=== PATIENT | male | born 1975 | race Caucasian/White ===

== ENCOUNTER 2020-08-14 10:56 | Outpatient (REF) | payer BC, SELFPAY ==
[2020-08-14 11:07] LABS: MANUAL DIFF FLAG NO
[2020-08-14 11:41] LABS: Basophils Absolute Auto 0.1 X10*3/uL (0.0-0.2); Basophils Percent Auto 1.1 % (0-2); Eosinophils Absolute Auto 0.1 X10*3/uL (0.0-0.4); Eosinophils Percent Auto 1.9 % (0-4); Hematocrit 45.1 % (42-52); Hemoglobin 14.9 g/dl (14.0-18.0); Imm Gran Abs Auto 0.03 X10*3/uL (0.00-0.03); Imm Gran Pct Auto 0.5 % (0.0-0.4); Lymphocytes Absolute Auto 2.6 X10*3/uL (1.2-4.9); Lymphocytes Percent Auto 41.4 % (20-40); Mean Corpuscular Hemoglobin 29.6 pg (27.0-33.0); Mean Corpuscular Volume 89.5 fL (80-98); Mean Platelet Volume 10.6 fL (9.4-12.4); Monocytes Absolute Auto 0.5 X10*3/uL (0.1-1.2); Monocytes Percent Auto 8.1 % (2-11); Platelet Count 335 X10*3/uL (160-400); Red Blood Count 5.04 X10*6/uL (4.60-5.80); Red Cell Distribution Width 12.8 % (11.0-16.0); White Blood Count 6.3 X10*3/uL (4.8-10.8)
[2020-08-14 11:52] LABS: Glucose Urine UA 100 MG/DL (NEG); Leukocyte Esterase Urine NEG (NEG); Nitrite Urine NEG (NEG); Specific Gravity - Urine >= 1.030 (1.005-1.025); Urine Blood NEG (NEG); Urine Ketones NEG (NEG); Urine Protein NEG (NEG-TRACE)
[2020-08-14 11:55] LABS: Estimated Average Glucose 117 mg/dL; Hemoglobin A1C 148.9066 umol/L; Hemoglobin A1c % 5.7 %
[2020-08-14 11:56] LABS: Appearance Urine CLEAR; Color Urine YELLOW
[2020-08-14 12:07] LABS: Creatinine Urine 223.69 mg/dL; Microalbum/Creatinine Ratio Ur 3.5 ug/mg cr
[2020-08-14 12:12] LABS: Alanine Aminotransferase 27 U/L (0-40); Albumin Level 4.2 g/dL (3.5-5.0); Alkaline Phosphatase 66 U/L (39-117); Anion Gap 14 (12-20); Aspartate Amino Transferase 21 U/L (5-37); Bilirubin Total 0.9 mg/dL (0.0-1.0); Blood Urea Nitrogen 18 mg/dL (9-16); Calcium 9.1 mg/dL (8.4-10.2); Carbon Dioxide 27 mmol/L (22-29); Chloride 104 mmol/L (96-108); Cholesterol 205 mg/dL; Estimated Glomerular Filt Rate > 60; Glucose Fasting 104 mg/dL (60-99); HDL Cholesterol 38 mg/dL; LDL Cholesterol Calculated 116 mg/dl; Potassium 4.2 mmol/L (3.3-5.1); Sodium 141 mmol/L (135-145); Total Protein 7.3 g/dL (6.5-8.0); Triglycerides 259 mg/dL
== END 2020-08-14 10:57 | disposition home or self-care (01) ==
LOC: HO.LNP 10:56
PROVIDERS: Visit Provider Internal Medicine
DX: Z00.00 Encounter for general adult medical examination without abnormal findings (principal); Z12.5 Encounter for screening for malignant neoplasm of prostate; R73.03 Prediabetes; E78.00 Pure hypercholesterolemia, unspecified
CPT/HCPCS: 80053; 80061; 81003; 82043; 83036; 84153; 85025

== ENCOUNTER 2021-08-27 10:20 | Outpatient (REF) | payer BC, SELFPAY ==
[2021-08-27 10:25] LABS: MANUAL DIFF FLAG NO
[2021-08-27 11:05] LABS: Basophils Absolute Auto 0.1 X10*3/uL (0.0-0.2); Basophils Percent Auto 0.6 % (0-2); Eosinophils Absolute Auto 0.2 X10*3/uL (0.0-0.4); Eosinophils Percent Auto 1.8 % (0-4); Hematocrit 45.3 % (42.0-52.0); Hemoglobin 15.2 g/dl (14.0-18.0); Imm Gran Abs Auto 0.04 X10*3/uL (0.00-0.03); Imm Gran Pct Auto 0.5 % (0.0-0.4); Lymphocytes Percent Auto 34.8 % (20-40); Mean Corpuscular HGB Conc 33.6 g/dl (31.0-36.0); Mean Corpuscular Hemoglobin 29.4 pg (27.0-33.0); Mean Corpuscular Volume 87.6 fL (80.0-98.0); Mean Platelet Volume 10.4 fL (9.4-12.4); Monocytes Absolute Auto 0.8 X10*3/uL (0.1-1.2); Monocytes Percent Auto 9.4 % (2-11); Neutrophils Absolute Auto 4.5 x10*3/uL (2.0-8.3); Neutrophils Percent Auto 52.9 % (45-73); Platelet Count 297 X10*3/uL (160-400); Red Blood Count 5.17 X10*6/uL (4.60-5.80); Red Cell Distribution Width 13.1 % (11.0-16.0); White Blood Count 8.5 X10*3/uL (4.8-10.8)
[2021-08-27 11:08] LABS: Appearance Urine CLEAR; Color Urine STRAW; Glucose Urine UA 100 MG/DL (NEG); Leukocyte Esterase Urine NEG (NEG); Nitrite Urine NEG (NEG); PH 5.5 (5.0-8.0); Specific Gravity - Urine 1.025 (1.005-1.025); Urine Blood NEG (NEG); Urine Ketones NEG (NEG); Urine Protein NEG (NEG-TRACE)
[2021-08-27 11:18] LABS: Estimated Average Glucose 120 mg/dL; Hemoglobin A1c % 5.8 %
[2021-08-27 11:20] LABS: Alanine Aminotransferase 40 U/L (0-40); Albumin Level 4.3 g/dL (3.5-5.0); Alkaline Phosphatase 61 U/L (39-117); Anion Gap 11 (12-20); Aspartate Amino Transferase 26 U/L (5-37); Blood Urea Nitrogen 22 mg/dL (9-16); Calcium 9.8 mg/dL (8.4-10.2); Carbon Dioxide 28 mmol/L (22-29); Chloride 102 mmol/L (96-108); Cholesterol 244 mg/dL; Estimated Glomerular Filt Rate > 60; Glucose Fasting 121 mg/dL (60-99); HDL Cholesterol 38 mg/dL; Potassium 4.1 mmol/L (3.3-5.1); Sodium 137 mmol/L (135-145); Total Protein 7.6 g/dL (6.5-8.0); Triglycerides 491 mg/dL
[2021-08-27 11:42] LABS: PSA,Total (Free>4and<10) 0.51 ng/mL (0.00-4.00)
[2021-08-27 11:54] LABS: Creatinine Urine 104.68 mg/dL; Microalbumin Urine < 5.0 mg/L
== END 2021-08-27 10:21 | disposition home or self-care (01) ==
LOC: HO.LNP 10:20
PROVIDERS: Visit Provider Internal Medicine
DX: Z00.00 Encounter for general adult medical examination without abnormal findings (principal); Z12.5 Encounter for screening for malignant neoplasm of prostate; E78.00 Pure hypercholesterolemia, unspecified; R73.03 Prediabetes
CPT/HCPCS: 80053; 80061; 81003; 82043; 83036; 84153; 85025

== ENCOUNTER 2021-09-02 11:13 | Outpatient (REF) | payer BC, SELFPAY ==
[2021-09-02 11:33] LABS: C Reactive Protein 0.37 mg/dL (< or = 0.50)
[2021-09-02 12:09] LABS: Erythrocyte Sedimentation Rate 4 MM/HR (0-15)
[2021-09-04 08:32] LABS: Lyme Abs Screen <0.90 index
[2021-09-09 12:46] LABS: Anti Nuclear Antibody Screen POSITIVE (NEGATIVE); Anti Nuclear Antibody Titer 1:40 titer
== END 2021-09-02 11:14 | disposition home or self-care (01) ==
LOC: HO.LNP 11:13
PROVIDERS: PCP Internal Medicine; Visit Provider Internal Medicine
DX: M19.90 Unspecified osteoarthritis, unspecified site (principal); R79.9 Abnormal finding of blood chemistry, unspecified
CPT/HCPCS: 85652; 86038; 86039; 86140; 86617; 86618

== ENCOUNTER → 2021-10-22 08:49 | Outpatient (BNVA) | payer BC, SELFPAY | PROVIDERS: PCP Internal Medicine; Visit Provider Nurse Practitioner Family | DX: R76.8 Other specified abnormal immunological findings in serum (principal) ==

== ENCOUNTER 2021-10-25 08:02 | Outpatient (REF) | payer BC, SELFPAY ==
--- NOTE | ~2021-10-25 | XR_ITS ---
EXAMINATION: Bilateral hands and knees. CLINICAL INFORMATION: Pain and stiffness. COMPARISON: None. TECHNIQUE: 3 views of each hand and 3 views of each knee. FINDINGS: Right hand: There is no evidence of acute fracture or dislocation of the right hand. Right hand joint spaces are maintained. No significant soft tissue swelling is appreciated. No erosive changes are evident. Left hand: There is no evidence of acute fracture or dislocation of the left hand. Left hand joint spaces are maintained. No erosive changes are evident. There is a bone island seen base of the 4th distal phalanx. Left knee: There is no evidence of acute fracture or dislocation of the left knee. Left knee joint spaces are maintained. No effusion is evident. Right knee: There is no evidence of acute fracture or dislocation of the right knee. Right knee joint spaces are maintained. No right knee effusion. XR/XR knee RT 3V IMPRESSION: No significant bony abnormality identified involving the bilateral hands and bilateral knees.
--- NOTE | ~2021-10-25 | XR_ITS ---
EXAMINATION: Bilateral hands and knees. CLINICAL INFORMATION: Pain and stiffness. COMPARISON: None. TECHNIQUE: 3 views of each hand and 3 views of each knee. FINDINGS: Right hand: There is no evidence of acute fracture or dislocation of the right hand. Right hand joint spaces are maintained. No significant soft tissue swelling is appreciated. No erosive changes are evident. Left hand: There is no evidence of acute fracture or dislocation of the left hand. Left hand joint spaces are maintained. No erosive changes are evident. There is a bone island seen base of the 4th distal phalanx. Left knee: There is no evidence of acute fracture or dislocation of the left knee. Left knee joint spaces are maintained. No effusion is evident. Right knee: There is no evidence of acute fracture or dislocation of the right knee. Right knee joint spaces are maintained. No right knee effusion. XR/XR knee LT 3V IMPRESSION: No significant bony abnormality identified involving the bilateral hands and bilateral knees.
--- NOTE | ~2021-10-25 | XR_ITS ---
EXAMINATION: Bilateral hands and knees. CLINICAL INFORMATION: Pain and stiffness. COMPARISON: None. TECHNIQUE: 3 views of each hand and 3 views of each knee. FINDINGS: Right hand: There is no evidence of acute fracture or dislocation of the right hand. Right hand joint spaces are maintained. No significant soft tissue swelling is appreciated. No erosive changes are evident. Left hand: There is no evidence of acute fracture or dislocation of the left hand. Left hand joint spaces are maintained. No erosive changes are evident. There is a bone island seen base of the 4th distal phalanx. Left knee: There is no evidence of acute fracture or dislocation of the left knee. Left knee joint spaces are maintained. No effusion is evident. Right knee: There is no evidence of acute fracture or dislocation of the right knee. Right knee joint spaces are maintained. No right knee effusion. XR/XR hand RT min 3V IMPRESSION: No significant bony abnormality identified involving the bilateral hands and bilateral knees.
--- NOTE | ~2021-10-25 | XR_ITS ---
EXAMINATION: Bilateral hands and knees. CLINICAL INFORMATION: Pain and stiffness. COMPARISON: None. TECHNIQUE: 3 views of each hand and 3 views of each knee. FINDINGS: Right hand: There is no evidence of acute fracture or dislocation of the right hand. Right hand joint spaces are maintained. No significant soft tissue swelling is appreciated. No erosive changes are evident. Left hand: There is no evidence of acute fracture or dislocation of the left hand. Left hand joint spaces are maintained. No erosive changes are evident. There is a bone island seen base of the 4th distal phalanx. Left knee: There is no evidence of acute fracture or dislocation of the left knee. Left knee joint spaces are maintained. No effusion is evident. Right knee: There is no evidence of acute fracture or dislocation of the right knee. Right knee joint spaces are maintained. No right knee effusion. XR/XR hand LT min 3V IMPRESSION: No significant bony abnormality identified involving the bilateral hands and bilateral knees.
[2021-10-25 09:18] LABS: Rheumatoid Factor < 15.0 IU/mL (<15.0)
[2021-10-25 09:37] LABS: Creatinine Urine 139.22 mg/dL; Microalbumin Urine < 5.0 mg/L
[2021-10-25 09:42] LABS: Thyroid Stimulating Hormone 1.29 uIU/mL (0.32-4.0)
[2021-10-29 16:40] LABS: Cyclic Citrullinated Peptide <16 UNITS
[2021-10-31 16:07] LABS: Anti DNA DS Antibody <1 IU/mL; SM/Ribonucleoprotein Ab <1.0 NEG AI (<1.0 NEG); Smith Protein <1.0 NEG AI (<1.0 NEG)
== END 2021-10-25 08:03 | disposition home or self-care (01) ==
LOC: HO.LAB 08:02
PROVIDERS: PCP Internal Medicine; Visit Provider Nurse Practitioner Family
DX: M25.561 Pain in right knee (principal); M25.562 Pain in left knee; M25.642 Stiffness of left hand, not elsewhere classified; M25.641 Stiffness of right hand, not elsewhere classified; R76.8 Other specified abnormal immunological findings in serum; M25.50 Pain in unspecified joint
CPT/HCPCS: 36415; 73130; 73562; 82043; 84443; 86200; 86225; 86235; 86431

== ENCOUNTER 2021-11-01 11:02 | Outpatient (REF) | payer BC, SELFPAY ==
[2021-11-01 11:23] LABS: Blood Urea Nitrogen 15 mg/dL (9-16)
== END 2021-11-01 11:03 | disposition home or self-care (01) ==
LOC: HO.LNP 11:02
PROVIDERS: Visit Provider Internal Medicine
DX: R79.9 Abnormal finding of blood chemistry, unspecified (principal)
CPT/HCPCS: 84520

== ENCOUNTER 2022-08-08 07:23 | Day surgery (SDC) | payer BC, SELFPAY ==
--- NOTE | 2022-08-07 12:51 | P.CONAN_ITS ---
Documented by User: Raissa Traore NP 08/07/22 12:51 HPI - Anesthesia Eval Consult details Narrative: 47yo M for Colonoscopy PMFSH Active Problems Active Problems: All Active Problems (Updated 10/22/21 @ 10:10 by Shaylee Crowell NP) Positive antinuclear antibody (Acute) Surgical History Surgical History [place] teeth extracted Social History Social History Household Members: Spouse Housing: House Are you a primary health care analyst to a significant other at home: No Do you presently have visiting nurse or other home services: No Alcohol intake: never Patient Tobacco Use Status: Never used Tobacco e-Cigarette/Vaping Use: Never Used Advance Directives: No Advance Directives Information Provided: Yes service: Yes Current occupational status: employed Current occupation: [employer] Allergies Allergy/AdvReac Type Severity Reaction Status Date / Time shellfish derived Allergy Unknown STOMACH Verified 08/08/22 07:43 [SHELLFISH DERIVED] PAIN, VOMITING, DIARRHEA Home Medications Medication Instructions Recorded Confirmed Last Taken Type calcium carbonate 300 mg (750 mg) 300 mg PO BID PRN Heartburn 10/22/21 08/08/22 Unknown History chewable tablet (Tums) Exam Exam Date and Time: August 07, 2022 1251 Assessment and Plan Assessment Anesthesia Assessment: Chart Reviewed Documented by User: Zain Benítez MD 08/08/22 07:49 PMFSH Family History Family history of problems with anesthesia: No Surgical History Surgical History [place] teeth extracted History of Problems with Anesthesia: No Social History Social History Household Members: Spouse Housing: House Are you a primary health care analyst to a significant other at home: No Do you presently have visiting nurse or other home services: No Alcohol intake: never Patient Tobacco Use Status: Never used Tobacco e-Cigarette/Vaping Use: Never Used Advance Directives: No Advance Directives Information Provided: Yes service: Yes Current occupational status: employed Current occupation: [employer] Allergies Allergy/AdvReac Type Severity Reaction Status Date / Time shellfish derived Allergy Unknown STOMACH Verified 08/08/22 07:43 [SHELLFISH DERIVED] PAIN, VOMITING, DIARRHEA Home Medications Medication Instructions Recorded Confirmed Last Taken Type calcium carbonate 300 mg (750 mg) 300 mg PO BID PRN Heartburn 10/22/21 08/08/22 Unknown History chewable tablet (Tums) Exam Airway Mallampati Class: III TM Dist: >3cm Neck ROM: Full Assessment and Plan Assessment Anesthesia Assessment: Anesthesia Plan Discussed Final Anesthetic Review Family History of Problems with Anesthesia: No History of Problems with Anesthesia: No NPO: Yes ASA Class: II Final Preanesthetic Review: No Changes in Pt Med Stat, Meds/Allgs Chart Reviewed, Consent Obtained/Reviewed and Anes Risks/Benef Reviewed Patient Risk: Low Procedure Risk: Low Anesthetic Plan Anesthetic Plan: MAC: Disposition: Standard PACU
[2022-08-08 08:00] VITALS: BMI 28.7
[2022-08-08 08:01] VITALS: BP 139/92; PULSE 74; RESP 15; TEMP 36.3; O2SAT 97
[2022-08-08] MEDS: Lactated Ringers 1,000 ML 100 ML IVCONT (08:12)
[2022-08-08 09:33] VITALS: BP 110/73; PULSE 80; RESP 15; TEMP 36.2; O2SAT 96
--- NOTE | 2022-08-08 09:35 | PM.OP ---
Brief Operative Note Date of Service: 08/08/22 Pre-op diagnosis: Screening Post-op diagnosis: other (Polyps) Procedure: Colonoscopy to the cecum and TI with cold snare polypectomy, and bx/removal of polyps Surgeon: José Luis Garcia Anesthesia: MAC Was an Independent Insurance Adjuster used for this Procedure?: No Estimated blood loss (mL): 2.0 Pathology: other (A. Transverse colon polyps) Condition: stable Disposition: PACU
[2022-08-08 09:48] VITALS: BP 116/83; PULSE 73; RESP 16; TEMP 36.4; O2SAT 97
--- NOTE | 2022-08-08 12:42 | OP_ITS ---
SURGEON: José Luis Garcia MD INDICATIONS: The patient presents for evaluation of colorectal cancer screening. Full consent has been obtained from him for this, including risks of bleeding and perforation. PREOPERATIVE DIAGNOSIS: POSTOPERATIVE DIAGNOSIS: PROCEDURE PERFORMED: Colonoscopy to the cecum and terminal ileum with cold snare polypectomy and biopsy with removal of polyp. ESTIMATED BLOOD LOSS: COMPLICATIONS: ANESTHESIA: Monitored anesthesia care ASSISTANTS: SPECIMENS: PREOPERATIVE DIAGNOSES: Colorectal cancer screening. POSTOPERATIVE DIAGNOSES: Colorectal cancer screening, small colon polyps, internal hemorrhoids. DESCRIPTION OF PROCEDURE: The patient was placed in the left lateral decubitus position. The digital rectal exam revealed no abnormalities. The Olympus video pediatric colonoscope was entered into the rectum and advanced easily to the cecum. Once in the cecum, I did identify normal-appearing cecal pouch with appendiceal orifice and a normal-appearing ileocecal valve. The terminal ileum was cannulated and appeared normal. The scope was withdrawn back in the colon. The entire cecum and ileocecal valve appeared normal. The scope was slowly withdrawn assessing all mucosal surfaces carefully. Perforation was excellent. In the proximal transverse colon, there were 2 flat polyps between 3 and 5 mm in diameter which were immediately adjacent to each other. They were removed by cold snare polypectomy together and recovered by suction. The polypectomy site appeared clean, without any sign of residual polyp nor any significant bleeding. Also, in the more distal transverse colon were 2 polyps each about 3 mm in diameter which were biopsied and completely removed with the cold biopsy forceps and placed in the same container as the other polyps. I did not visualize any other polyps, colitis, nor angiodysplasia. In the rectum, the scope was retroflexed, visualizing internal hemorrhoids, but no other pathology. The rectal mucosa appeared normal. The scope was straightened out and withdrawn from the patient. He tolerated the procedure well and was returned to the recovery area in stable condition. IMPRESSION: 1. Colon polyps. 2. Internal hemorrhoids. PLAN: The results of the pathology will be checked. If these are tubular adenomas, I would recommend a followup colonoscopy in 5 years. If they are all hyperplastic, I would recommend followup colonoscopy in 10 years. He was advised not to use any aspirin or NSAIDs for 1 week. MD BEAN Hallman/MARLENE / [phone] [facility] HOSPITALHerbert
== END 2022-08-08 10:24 | disposition home or self-care (01) ==
PROVIDERS: PCP Internal Medicine; Visit Provider Internal Medicine
PROC: 0DJD8ZZ Inspection of Lower Intestinal Tract, Via Natural or Artificial Opening Endoscopic (ICD-10-PCS; CPT 45378; principal; 2022-08-08 08:30)
DX: Z12.11 Encounter for screening for malignant neoplasm of colon (principal); D12.3 Benign neoplasm of transverse colon; K64.8 Other hemorrhoids
CPT/HCPCS: 45385; 45380; 88305

== ENCOUNTER 2022-08-29 11:41 | Outpatient (REF) | payer BC, SELFPAY ==
[2022-08-29 11:44] LABS: MANUAL DIFF FLAG NO
[2022-08-29 12:34] LABS: White Blood Count 7.3 X10*3/uL (4.8-10.8)
[2022-08-29 12:35] LABS: Basophils Absolute Auto 0.1 X10*3/uL (0.0-0.2); Basophils Percent Auto 0.8 % (0-2); Eosinophils Absolute Auto 0.1 X10*3/uL (0.0-0.4); Hematocrit 46.8 % (42.0-52.0); Hemoglobin 15.4 g/dl (14.0-18.0); Imm Gran Abs Auto 0.03 X10*3/uL (0.00-0.03); Imm Gran Pct Auto 0.4 % (0.0-0.4); Lymphocytes Absolute Auto 2.4 X10*3/uL (1.2-4.9); Mean Corpuscular HGB Conc 32.9 g/dl (31.0-36.0); Mean Corpuscular Volume 88.1 fL (80.0-98.0); Mean Platelet Volume 10.7 fL (9.4-12.4); Monocytes Absolute Auto 0.7 X10*3/uL (0.1-1.2); Monocytes Percent Auto 9.4 % (2-11); Neutrophils Absolute Auto 4.1 x10*3/uL (2.0-8.3); Neutrophils Percent Auto 56.4 % (45-73); Platelet Count 318 X10*3/uL (160-400); Red Blood Count 5.31 X10*6/uL (4.60-5.80); Red Cell Distribution Width 13.2 % (11.0-16.0)
[2022-08-29 12:43] LABS: Appearance Urine Clear; Color Urine Yellow; Glucose Urine UA 100 mg/dL (Negative); Leukocyte Esterase Urine Negative (Negative); Nitrite Urine Negative (Negative); Urine Blood Negative (Negative); Urine Ketones Negative (Negative); Urine Protein Negative (Neg-Trace)
[2022-08-29 12:49] LABS: Bacteria Urine None Seen (None Seen); Hyaline Casts Urine 0-2 /LPF (0-2); RBC Urine 0-2 /HPF (0-2); Squamous Epithelial Cell Urine 0-2 /HPF (0-2); WBC Urine 0-5 /HPF (0-5)
[2022-08-29 12:58] LABS: Creatinine Urine 168.86 mg/dL; Microalbum/Creatinine Ratio Ur 5.3 ug/mg cr
[2022-08-29 13:04] LABS: Estimated Average Glucose 128 mg/dL; Hemoglobin A1c % 6.1 %
[2022-08-29 13:15] LABS: Alanine Aminotransferase 38 U/L (0-40); Albumin Level 4.3 g/dL (3.5-5.0); Alkaline Phosphatase 60 U/L (39-117); Anion Gap 14 (12-20); Aspartate Amino Transferase 30 U/L (5-37); Bilirubin Total 1.5 mg/dL (0.0-1.0); Blood Urea Nitrogen 16 mg/dL (9-16); Calcium 9.4 mg/dL (8.4-10.2); Carbon Dioxide 25 mmol/L (22-29); Chloride 102 mmol/L (96-108); Cholesterol 216 mg/dL; Estimated Glomerular Filt Rate > 60; Glucose Fasting 125 mg/dL (60-99); HDL Cholesterol 39 mg/dL; LDL Cholesterol Calculated 117 mg/dl; PSA,Total (Free>4and<10) 0.62 ng/mL (0.00-4.00); Potassium 4.2 mmol/L (3.3-5.1); Sodium 137 mmol/L (135-145); Total Protein 7.3 g/dL (6.5-8.0); Triglycerides 302 mg/dL
== END 2022-08-29 11:42 | disposition home or self-care (01) ==
LOC: HO.LNP 11:41
PROVIDERS: Visit Provider Internal Medicine
DX: Z00.00 Encounter for general adult medical examination without abnormal findings (principal); E78.00 Pure hypercholesterolemia, unspecified; R73.03 Prediabetes; Z12.5 Encounter for screening for malignant neoplasm of prostate
CPT/HCPCS: 80053; 80061; 81001; 82043; 83036; 84153; 85025

== ENCOUNTER 2023-09-04 11:30 | Outpatient (REF) | payer BC, SELFPAY ==
[2023-09-04 11:35] LABS: MANUAL DIFF FLAG NO
[2023-09-04 12:01] LABS: Basophils Absolute Auto 0.1 X10*3/uL (0.0-0.2); Basophils Percent Auto 1.2 % (0-2); Eosinophils Absolute Auto 0.1 X10*3/uL (0.0-0.4); Eosinophils Percent Auto 1.4 % (0-4); Hematocrit 46.8 % (42.0-52.0); Hemoglobin 15.5 g/dl (14.0-18.0); Imm Gran Abs Auto 0.04 X10*3/uL (0.00-0.03); Imm Gran Pct Auto 0.5 % (0.0-0.4); Lymphocytes Absolute Auto 2.5 X10*3/uL (1.2-4.9); Lymphocytes Percent Auto 32.4 % (20-40); Mean Corpuscular HGB Conc 33.1 g/dl (31.0-36.0); Mean Corpuscular Volume 87.6 fL (80.0-98.0); Monocytes Absolute Auto 0.8 X10*3/uL (0.1-1.2); Monocytes Percent Auto 9.8 % (2-11); Neutrophils Absolute Auto 4.2 x10*3/uL (2.0-8.3); Neutrophils Percent Auto 54.7 % (45-73); Platelet Count 329 X10*3/uL (160-400); Red Blood Count 5.34 X10*6/uL (4.60-5.80); Red Cell Distribution Width 13.2 % (11.0-16.0); White Blood Count 7.7 X10*3/uL (4.8-10.8)
[2023-09-04 12:07] LABS: Appearance Urine Clear; Color Urine Yellow; Glucose Urine UA 500 mg/dL (Negative); Leukocyte Esterase Urine Negative (Negative); Nitrite Urine Negative (Negative); Specific Gravity - Urine 1.025 (1.005-1.025); Urine Blood Negative (Negative); Urine Ketones Negative (Negative); Urine Protein Negative (Neg-Trace)
[2023-09-04 12:14] LABS: Bacteria Urine None Seen (None Seen); Hyaline Casts Urine 0-2 /LPF (0-2); RBC Urine 0-2 /HPF (0-2); Squamous Epithelial Cell Urine 0-2 /HPF (0-2); WBC Urine 0-5 /HPF (0-5)
[2023-09-04 12:48] LABS: Estimated Average Glucose 134 mg/dL; Hemoglobin A1c % 6.3 % (<6.0)
[2023-09-04 12:52] LABS: Alanine Aminotransferase 50 U/L (0-40); Albumin Level 4.1 g/dL (3.5-5.0); Alkaline Phosphatase 61 U/L (39-117); Anion Gap 16 (12-20); Aspartate Amino Transferase 27 U/L (5-37); Bilirubin Total 0.9 mg/dL (0.0-1.0); Blood Urea Nitrogen 18 mg/dL (9-16); Calcium 9.8 mg/dL (8.4-10.2); Carbon Dioxide 25 mmol/L (22-29); Chloride 104 mmol/L (96-108); Cholesterol 222 mg/dL (<200); Estimated Glomerular Filt Rate > 60; Glucose Fasting 132 mg/dL (60-99); HDL Cholesterol 40 mg/dL (>40); Potassium 3.9 mmol/L (3.3-5.1); Sodium 141 mmol/L (135-145); Total Protein 7.8 g/dL (6.5-8.0); Triglycerides 457 mg/dL (<150)
[2023-09-04 13:16] LABS: PSA,Total (Free>4and<10) 0.73 ng/mL (0.00-4.00)
[2023-09-04 13:43] LABS: Creatinine Urine 133.92 mg/dL; Microalbum/Creatinine Ratio Ur 4.4 ug/mg cr (<30)
== END 2023-09-04 11:31 | disposition home or self-care (01) ==
LOC: HO.LNP 11:30
PROVIDERS: Visit Provider Internal Medicine
DX: Z00.00 Encounter for general adult medical examination without abnormal findings (principal); Z12.5 Encounter for screening for malignant neoplasm of prostate; E78.00 Pure hypercholesterolemia, unspecified; R73.03 Prediabetes
CPT/HCPCS: 80053; 80061; 81001; 82043; 82570; 83036; 84153; 85025

== ENCOUNTER 2024-05-06 11:14 | Outpatient (REF) | payer BC, SELFPAY ==
[2024-05-06 12:01] LABS: Estimated Average Glucose 131 mg/dL; Hemoglobin A1C 178.8949 umol/L; Hemoglobin A1c % 6.2 % (<6.0); Total Hemoglobin (HGBA1C) 4001.3587 umol/L
[2024-05-06 12:09] LABS: Alanine Aminotransferase 50 U/L (0-40); Albumin Level 4.4 g/dL (3.5-5.0); Alkaline Phosphatase 65 U/L (39-117); Aspartate Amino Transferase 42 U/L (5-37); Bilirubin Direct 0.3 mg/dL (0.0-0.5); Bilirubin Total 0.9 mg/dL (0.0-1.0); Cholesterol 211 mg/dL (<200); Glucose Fasting 123 mg/dL (60-99); HDL Cholesterol 41 mg/dL (>40); LDL Cholesterol Calculated 93 mg/dL (<100); Total Protein 8.1 g/dL (6.5-8.0); Triglycerides 386 mg/dL (<150)
[2024-05-06 12:12] LABS: Reflex LDLD? No
== END 2024-05-06 11:15 | disposition home or self-care (01) ==
LOC: HO.LNP 11:14
PROVIDERS: Visit Provider Internal Medicine
DX: E78.00 Pure hypercholesterolemia, unspecified (principal); E11.9 Type 2 diabetes mellitus without complications
CPT/HCPCS: 80061; 80076; 82947; 83036

== ENCOUNTER 2024-11-04 11:24 | Outpatient (REF) | payer BC, SELFPAY ==
[2024-11-04 11:30] LABS: MANUAL DIFF FLAG NO
--- OUTSIDE RECORDS SUMMARY | 2024-11-04 12:10 | XMS_ITS ---
Author Organization Raghavendra Mejia MD Address [address] [place], [place] [id number] Care Team Providers [employer] Architect Name Role Phone Raghavendra Mejia Primary Care Provider [phone] Results Component Value Reference Range Notes Liver Panel Reviewed date:05/06/2024 12:17:23 PM Interpretation: Performing Lab:[facility], [address] [place] [phone] Notes/Report: Bilirubin Total 0.9 0.0-1.0 mg/dL Bilirubin Direct 0.3 0.0-0.5 mg/dL Aspartate Amino Transferase 42 5-37 U/L Alanine Aminotransferase 50 0-40 U/L Total Protein 8.1 6.5-8.0 g/dL Albumin Level 4.4 3.5-5.0 g/dL Alkaline Phosphatase 65 39-117 U/L Glucose Fasting Reviewed date:05/06/2024 12:34:04 PM Interpretation: Performing Lab:[facility], [address] [place] [phone] Notes/Report: Glucose Fasting 123 60-99 mg/dL A fasting glucose from 100-125 mg/dl is considered impaired (pre-diabetes). Lipid Panel with Reflex Reviewed date:05/06/2024 12:30:05 PM Interpretation: Performing Lab:[facility], [address] [place] [phone] Notes/Report: Triglycerides 386 <150 mg/dL Desirable Triglyceride: less than 150 mg/dL Borderline High Triglyceride 150-199 mg/dL High Triglyceride: 200-499 mg/dL Very High Triglyceride: greater than or equal to 5OO mg/dL Cholesterol 211 <200 mg/dL Desirable Cholesterol: less than 200 mg/dL Borderline High Cholesterol: 200-239 mg/dL High Cholesterol: greater than 239 mg/dL LDL Cholesterol Calculated 93 <100 mg/dL Desirable LDL: less than 100 mg/dL Near Optimal/Above Optimal LDL: 110-129 mg/dL Borderline High LDL: 130-159 mg/dL High LDL: 160-189 mg/dL Very High LDL: greater than or equal to 190 mg/dL HDL Cholesterol 41 >40 mg/dL Desirable HDL: greater than 40 mg/dL Note: This HDL assay may give artificially low results in patients with liver disease. Hemoglobin A1c Reviewed date:05/06/2024 12:16:27 PM Interpretation: Performing Lab:[facility], [address] [place] [phone] Notes/Report: Hemoglobin A1c % 6.2 <6.0 % Hemoglobin A1C Reference Range Adults: 4.8 - 6.0 % Non diabetic: < 6.0 % Goal: < 7.0 % Additional Action Suggested: > 8.0 % Note: Hemoglobin A1c results are invalid for patients with abnormal amounts of HbF. Blood transfusions may impact the HbA1c concentration in the patient sample. Estimated Average Glucose 131 eAG = Estimated average glucose which is %A1C expressed as average glucose, using the formula of the [id number] Average Glucose study (ADAG), Diabetes Care, Vol.31,#8, Dec. 2007 REASON FOR VISIT lipid panel with reflex/ A1C Immunizations Vaccine Route Administration Date Status Comme nts Fluarix Quadrivalent - 150 IM Intramuscular 05/06/2024 Adm inistered Encounters Encounter Location Date Provider Diagnosis Raghavendra Mejia MD [address] [place] [address] [place] [phone] 05/06/2024 Raghavendra Mejia Hypercholesterolemia E78.00 ; Encounter for immunization Z23 and Type 2 diabetes mellitus treated without insulin E11.9 Assessments Encounter Date Diagnosis (ICD Code) Assessment Notes Treatment Notes Treatment Clinical Notes Section Notes 05/06/2024 Hypercholesterolemia (ICD-10 - E78.00) 05/06/2024 Encounter for immunization (ICD-10 - Z23) 05/06/2024 Type 2 diabetes ashleigh itus treated without insulin (ICD-10 - E11.9) Plan Of Treatment Next Appt Details Provider Name:Raghavendra Jovel ier, 11/11/2024 08:30:00 AM, [address], [address], [place], [place], [phone], Progress Notes * JESSICA VERNONOB:1975 ([age] yo M)Acc No.[id number]:05/06/2024 Progress Note Patient:?EDWIN VERNON Provider:?Raghavendra Mejia MD :1975???Age:48 Y???Sex:Male Neto e:05/06/2024 Address:[address] [place] [address] [facility] Subjective: * Chief Complaints: * ???1. lipid panel with refle x/ A1C. * Medical History:? Objective: * Vitals:? Assessment: * Assessment: 1.?Encounter for immunizatio n - Z23 (Primary)???2.?Hypercholesterolemia - E78.00???3.?Type 2 diabetes mellitus treated without insulin - E11.9??? Plan: * Treatment: 2.?Type 2 diabetes mellitus treated without insulin?LAB: Liver Panel (Collection Date & Time - 05/06/2024 08:00 AM) ?LAB: Glucose Fasting (Collection Date & Time - 05/06/2024 08:00 AM) ?LAB: Lipid Panel with Reflex (Collection Date & Time - 05/06/2024 08:00 AM) ?LAB: Hemoglobin A1c (Collection Date & Time - 05/06/2024 08:00 AM) * Immunizations:? Fluarix Quadrivalent - 150 : 0.5 mL (Dose No:1) (Route: Intramuscular) given by Marychuy Estrada , Office Staff on Left Deltoid * Procedure Codes:?86488 FLU V ACCINE NO PRESERV 3 & >, 51200 IMMUNIZATION ADMIN, 94541 VENIPUNCT, ROUTINE* * * The named appointment provid er may or may not be the originator of this progress note, and it is not deemed complete until electronically signed by the appointment provider. Sign off status: Pending * Provider:?Raghavendra Mejia MD Date:?1 07/07/2023 Generated for Raz meza/Crystal/Dianaitting on:?11/04/2024 12:10 PM EDT
[2024-11-04 12:16] LABS: Basophils Absolute Auto 0.1 X10*3/uL (0.0-0.2); Eosinophils Absolute Auto 0.1 X10*3/uL (0.0-0.4); Eosinophils Percent Auto 1.3 % (0-4); Hematocrit 45.9 % (42.0-52.0); Hemoglobin 15.6 g/dl (14.0-18.0); Imm Gran Abs Auto 0.03 X10*3/uL (0.00-0.03); Imm Gran Pct Auto 0.4 % (0.0-0.4); Lymphocytes Absolute Auto 2.4 X10*3/uL (1.2-4.9); Lymphocytes Percent Auto 34.7 % (20-40); Mean Corpuscular Hemoglobin 29.7 pg (27.0-33.0); Mean Corpuscular Volume 87.3 fL (80.0-98.0); Mean Platelet Volume 10.9 fL (9.4-12.4); Monocytes Absolute Auto 0.6 X10*3/uL (0.1-1.2); Monocytes Percent Auto 8.7 % (2-11); Neutrophils Absolute Auto 3.8 x10*3/uL (2.0-8.3); Neutrophils Percent Auto 53.9 % (45-73); Platelet Count 319 X10*3/uL (160-400); Red Blood Count 5.26 X10*6/uL (4.60-5.80); Red Cell Distribution Width 13.1 % (11.0-16.0)
[2024-11-04 12:40] LABS: Appearance Urine Clear; Color Urine Yellow; Glucose Urine UA 250 mg/dL (Negative); Leukocyte Esterase Urine Negative (Negative); Nitrite Urine Negative (Negative); PH 5.5 (5.0-9.0); Specific Gravity - Urine 1.015 (1.005-1.025); Urine Blood Negative (Negative); Urine Ketones Negative (Negative); Urine Protein Negative (Neg-Trace)
[2024-11-04 12:44] LABS: Bacteria Urine None Seen (None Seen); Hyaline Casts Urine 0-2 /LPF (0-2); RBC Urine 0-2 /HPF (0-2); Squamous Epithelial Cell Urine 0-2 /HPF (0-2); WBC Urine 0-5 /HPF (0-5)
[2024-11-04 12:49] LABS: Estimated Average Glucose 134 mg/dL; Hemoglobin A1C 188.1895 umol/L; Hemoglobin A1c % 6.3 % (<6.0)
[2024-11-04 12:57] LABS: PSA,Total (Free>4and<10) 0.62 ng/mL (0.00-4.00)
[2024-11-04 13:34] LABS: Alanine Aminotransferase 33 U/L (0-40); Albumin Level 4.4 g/dL (3.5-5.0); Alkaline Phosphatase 60 U/L (39-117); Anion Gap 13 (12-20); Aspartate Amino Transferase 28 U/L (5-37); Bilirubin Total 1.3 mg/dL (0.0-1.0); Blood Urea Nitrogen 15 mg/dL (9-16); Carbon Dioxide 26 mmol/L (22-29); Chloride 104 mmol/L (96-108); Cholesterol 219 mg/dL (<200); Estimated Glomerular Filt Rate > 60; Glucose Fasting 136 mg/dL (60-99); HDL Cholesterol 36 mg/dL (>40); Potassium 4.1 mmol/L (3.3-5.1); Sodium 139 mmol/L (135-145); Total Protein 7.7 g/dL (6.5-8.0); Triglycerides 514 mg/dL (<150)
[2024-11-04 13:47] LABS: Microalbumin Urine < 5.0 mg/L
== END 2024-11-04 11:25 | disposition home or self-care (01) ==
LOC: HO.LNP 11:24
PROVIDERS: Visit Provider Internal Medicine
DX: Z00.00 Encounter for general adult medical examination without abnormal findings (principal); Z12.5 Encounter for screening for malignant neoplasm of prostate; E78.00 Pure hypercholesterolemia, unspecified; E11.9 Type 2 diabetes mellitus without complications
CPT/HCPCS: 80053; 80061; 81001; 82043; 82570; 83036; 84153; 85025